=== PATIENT | female | born 1930 | race Caucasian/White ===

== ENCOUNTER 2017-06-05 10:47 | Emergency (ER) | payer OTHER ==
[~2017-06-05] VITALS: Ht 172.7 cm; Wt 88.5 kg
[2017-06-05] MEDS ORDERED: VESICARE5 M1 PO (10:59)
[2017-06-05] MEDS ORDERED: CITALOPRAM HBR20 MG PO (11:00)
[2017-06-05] MEDS ORDERED: PRAVASTATIN SOD40 M2 PO (11:01)
[2017-06-05] MEDS ORDERED: LEVOTHYROXINE75 MCG PO (11:01)
[2017-06-05] MEDS ORDERED: LOSARTAN POTASS50 M1 PO (11:02)
[2017-06-05] MEDS ORDERED: TAMIFLU75 M1 PO (11:02)
[2017-06-05] MEDS ORDERED: DONEPEZIL HCL23 MG PO (11:02)
[2017-06-05] MEDS ORDERED: CALCIUM 600 +1 EA11 PO (11:04)
--- NOTE | 2017-06-05 11:08 | ED GI/GU/ABDOMINAL COMPLAINT ---
History of Present Illness General Chief Complaint: Nausea, Vomiting, Diarrhea Stated Complaint: N/V Source: patient, old records, EMS, W10 Exam Limitations: poor historian Vital Signs & Intake/Output Vital Signs & Intake/Output Vital Signs Date Time Temp Pulse Resp B/P B/P Pulse O2 O2 Flow FiO2 Mean Ox Delivery Rate 06/05 1349 98.0 55 18 174/86 99 Room Air 06/05 1055 97.6 57 20 157/70 97 Room Air 06/05 1053 97 Allergies Coded Allergies: BEAU Inhibitors (COUGH 06/05/17) Reconcile Medications Calcium Carbonate/Vitamin D3 (Calcium 600 + Vit D 400 Tablet) 600 MG-400 TABLET 1 TAB PO DAILY SUPPLEMENT (Reported) Citalopram Hydrobromide (Citalopram HBr) 20 MG TABLET 1 TAB PO DAILY ANXIETY (Reported) Donepezil HCl 23 MG TABLET 1 TAB PO DAILY DEMENTIA (Reported) Levothyroxine Sodium 75 MCG TABLET 1 TAB PO DAILY AC THYROID (Reported) Losartan Potassium 50 MG TABLET 1 TAB PO BID HTN (Reported) Oseltamivir Phosphate (Tamiflu) 75 MG CAPSULE 1 CAP PO DAILY FLU PROPHO ( Reported) Pravastatin Sodium 40 MG TABLET 1 TAB PO QPM CHOLESTEROL (Reported) Solifenacin Succinate (Vesicare) 5 MG TABLET 1 TAB PO DAILY BLADDER (Reported ) Triage Note: PT BIBA FROM [facility] WITH N/V. STAFF FOUND PT ON HER KNEES THIS AM VOMITING. PT DID NOT HAVE DIARRHEA. PER [facility] STAFF PT VOMITED 3 TIMES AND AFTER THE THIRD TIME SHE BEGAN TO SHAKE. Triage Nurses Notes Reviewed? yes ? n Is pt currently ? No Onset: Gradual Duration: hour(s): (2) Timing: no prior history Quality/Severity: vomiting Radiation: no radiation Activities at Onset: none Prior Abdominal Problems: none Past Sexual History: Unobtainable at this time No Modifying Factors: none HPI: Patient is an 87-year-old female with history of hypertension, hypothyroid, dementia, hyperlipidemia and urinary urgency presenting to the emergency department via EMS from nursing facility with chief complaint of vomiting. According to the W 10 patient was witnessed kneeling on the floor vomiting at 9 AM this morning. Vital signs were stable at that time and no apparent injury from the fall was documented. Patient was placed back into bed and at 10:15 was observed sitting with tremors noted in the hands and she vomited again which lasted 15-20 seconds. They decided to transfer to the emergency department for evaluation after this episode. Patient does not recall this happening. Denies any abdominal pain. No chest pain palpitations or shortness of breath. Denies any fevers or chills. Unsure of any sick contacts. Unsure if she breakfast this morning. (Renuka Echeverria) Past History Travel History Traveled to [place] past 21 day No Medical History Any Pertinent Medical History? see below for history Neurological: dementia Cardiovascular: hypertension, hyperlipidemia Psychiatric: anxiety Endocrine: hypothyroidism Surgical History Surgical History: non-contributory Psychosocial History What is your primary language Vincentian Tobacco Use: Never used ETOH Use: denies use Illicit Drug Use: denies illicit drug use Family History Hx Contributory? No (Renuka Echeverria) Review of Systems Review of Systems Constitutional: Reports: no symptoms. Comments Review of systems: See HPI, All other systems negative. HPI and review of systems provided by patient and W 10. Constitutional, no fever or weight loss HEENT: No visual changes no sore throat no congestion Cardiovascular: No chest pain ,palpitation , orthopnea or ankle swelling Skin, no jaundice no rashes Respiratory: No dyspnea cough sputum or hemoptysis GI: No diarrhea : No dysuria No hematuria Muscle skeletal: no back pain, no neck pain, Neurologic: No numbness no confusion Psych: No stress anxiety or depression,. Heme/endocrine: No bruising no bleeding no polyuria or polydipsia Immunology: No splenectomy or history of AIDS (Renuka Echeverria) Physical Exam Physical Exam General Appearance: well developed/nourished, no apparent distress, alert, awake , comfortable Gastrointestinal: normal bowel sounds, soft, non-tender Comments: Well-developed well-nourished person in no acute distress HEENT: extraocular motion intact, no nystagmus. Pupils equally round and reactive to light and accommodation. Nose is atraumatic. External auditory canal and Tympanic membranes clear. Small amount of cerumen noted in the external canal bilaterally. Pharynx normal. No swelling or edema. Moist oral mucosa. Neck: Supple, no lymphadenopathy Back: Nontender, no CVA tenderness. Cardiovascular: Regular rate and rhythms no murmurs rubs or gallops Respiratory: Chest nontender. No respiratory distress.breath sounds clear to auscultation bilaterally Abdomen: Soft, nontender nondistended, no appreciable organomegaly. Normal bowel sounds. No ascites, no rebound or guarding. Extremity: No edema, no calf tenderness to palpation, normal and equal pulses. Neuro: Alert oriented x3, confusable situation as to why she is in the emergency department, motor sensory normal, cranial nerves II through XII grossly intact. Skin: No appreciable rash on exposed skin, skin is warm and dry. Psych: Mood and affect is normal, poor memory. Core Measures ACS in differential dx? No Sepsis Present: No Sepsis Focused Exam Completed? No (Whitney CARTER,Renuka) Progress Differential Diagnosis: gastritis, pancreatitis, SBO, UTI/pyelo, gastritis, gastroenteritis, influenza, dehydration, electrolyte abnormality Plan of Care: Orders Procedure Date/time Status Clear Liquid Diet 06/05 L Active Add-on Test (ER Only) 06/05 1225 Active Add-on Test (ER Only) 06/05 1153 Active TRIGLYCERIDES 06/05 1120 Complete ETHANOL 06/05 1120 Complete CREATINE PHOSPHOKINASE 06/05 1120 Complete RAPID VIRAL INFLUENZA A 06/05 1107 Complete URINALYSIS 06/05 1107 Complete TROPONIN LEVEL 06/05 1107 Complete LIPASE 06/05 1107 Complete COMPREHENSIVE METABOLIC PANEL 06/05 1107 Complete CBC WITHOUT DIFFERENTIAL 06/05 1107 Complete AMYLASE 06/05 1107 Complete EKG 06/05 1107 Active Laboratory Tests 06/05/17 1128: Urine Color YEL, Urine Clarity CLEAR, Urine pH 6.5, Ur Specific [place] 1.015, Urine Protein NEG, Urine Ketones NEG, Urine Nitrite NEG, Urine Bilirubin NEG, Urine Urobilinogen 0.2, Ur Leukocyte Esterase NEG, Ur Microscopic SEDIMENT EXAMINED, Urine RBC 3-5, Urine WBC RARE, Ur Epithelial Cells RARE, Hyaline Casts FEW H, Urine Hemoglobin SMALL H, Urine Glucose NEG 06/05/17 1120: Anion Gap 12, Estimated GFR 35 L, BUN/Creatinine Ratio 16.4, Glucose 113 H, Calcium 9.1, Total Bilirubin 0.4, AST 19, ALT 43, Alkaline Phosphatase 56, Creatine Kinase 30, Troponin I < 0.01, Total Protein 6.6, Albumin 3.8, Globulin 2.8, Albumin/Globulin Ratio 1.4, Triglycerides 145, Amylase 137 H, Lipase 480 H, CBC w Diff NO MAN DIFF REQ, RBC 3.92 L, MCV 84.6, MCH 28.9, RDW 13.8, MPV 6.3 L, Gran % 78.7 H, Lymphocytes % 14.0 L, Monocytes % 5.7, Eosinophils % 1.3, Basophils % 0.3, Absolute Granulocytes 6.0, Absolute Lymphocytes 1.1 L, Absolute Monocytes 0.4, Absolute Eosinophils 0.1, Absolute Basophils 0, PUBS MCHC 34.2, Serum Alcohol < 10.0 Microbiology 06/05 1118 NASOPHARYN: Influenza Virus A & B Rapid Smear - COMP Diagnostic Imaging: Viewed by Me: Radiology Read. Discussed w/RAD: Radiology Read. Radiology Impression: PATIENT: BEVERLY SINGH PRESENT AGE: 87 PATIENT ACCOUNT NO: [id number] : [birth year] LOCATION: [facility] ORDERING PHYSICIAN: Renuka CARTER SERVICE DATE: 06/05/17 EXAM TYPE: US - US-LIMITED ABDOMEN EXAMINATION: US ABDOMEN LIMITED CLINICAL INFORMATION: Vomiting. Elevated lipase. Rule out gallstones. COMPARISON: None TECHNIQUE: Real-time imaging of the right upper quadrant abdominal viscera. FINDINGS: PANCREAS: The pancreatic body is visualized with the remainder of the pancreas is essentially obscured by overlying bowel gas. Slight increased echogenicity of the pancreas is seen, suggesting fatty infiltration. LIVER: The liver contour is slightly nodular in the parenchyma slightly heterogeneous. Findings would raise the suspicion of subtle liver disease. No definite hepatic steatosis is seen. No focal lesion or intrahepatic biliary duct dilatation. GALLBLADDER: Normal. The gallbladder is physiologically distended without evidence of stones, sludge, polyps, wall thickening or pericholecystic fluid. COMMON BILE DUCT: Normal in caliber measuring 0.5 cm in diameter. RIGHT KIDNEY: Normal. No hydronephrosis. No renal calculi or focal parenchymal lesions. The kidney measures 8.4 cm in maximum dimension. FREE FLUID: None. IMPRESSION: 1. Fatty infiltration of the pancreas is suggested. Pancreatic body is otherwise unremarkable. Remainder of pancreas is obscured by overlying bowel gas. 2. There may be subtle underlying liver disease as evidenced by slightly nodular liver contour and heterogeneous parenchyma. Close clinical correlation is requested. 3. Otherwise unremarkable right upper quadrant ultrasound. DICTATED BY: Wilfredo MAYBERRY ,Sherie Santamaria DATE/TIME DICTATED:06/05/171342 AMBULATORY TECHNOLOGIST:ELIZ DATE/ TIME TRANSCRIBED:06/05/17 / 1342 CONFIDENTIAL, DO NOT COPY WITHOUT APPROPRIATE AUTHORIZATION. <Electronically signed in Other Vendor System> SIGNED BY: Sherie Villalobos MD 06/05/17 1350, CXRAY- NO ACUTE PROCESS Initial ED EKG: NSR (57 BPM) Comments: 06/05/2017 3:06:48 PM patient's family informed of all lab results and imaging study results. Patient has mild pancreatitis. Tolerating clear liquids without nausea or vomiting here in the emergency department. Still nontender on abdominal exam. No signs of gallstones triglycerides are within normal range. No elevated LFTs. Patient afebrile. No elevation of white blood cell count. Patient did recently start Tamiflu, possible side effect of Tamiflu could be pancreatitis. Patient will follow up with her primary care physician in regards to this patient's off the medication or not. Patient will be driven back to the assisted living facility by her daughter. Patient nontoxic. Also Milli Galeas MD, she agrees with plan. (Renuka Echeverria) Departure Departure Time of Disposition: 1448 Disposition: HOME OR SELF CARE Condition: Stable Clinical Impression Primary Impression: Pancreatitis Qualifiers: Chronicity: acute Pancreatitis type: unspecified pancreatitis type Acute pancreatitis complication: unspecified Qualified Code: K85.90 - Acute pancreatitis without necrosis or infection, unspecified Secondary Impressions: Dehydration Hypertension Qualifiers: Hypertension type: unspecified Qualified Code: I10 - Essential ( primary) hypertension Nausea and vomiting Qualifiers: Vomiting type: unspecified Vomiting Intractability: unspecified Qualified Code: R11.2 - Nausea with vomiting, unspecified Referrals: Lesli MAYBERRY,Altaf Briggs (PCP/Family) Additional Instructions: FOLLOW UP WITH YOUR PRIMARY CARE PHYSICIAN, CALL TO MAKE APPOINTMENT. Liquid diet for the nexT 24-40 hours. Take Tylenol as needed for pain. Return for worsening symptoms or concerns. Departure Forms: Customer Survey D/C INS-APPENDICITIS EXCLUSION General Discharge Information (Renuka Echeverria) PA/DIGITAL ARTIST Co-Sign Statement Statement: ED Attending supervision documentation- [X] I saw and evaluated the patient. I have also reviewed all the pertinent lab results and diagnostic results. I agree with the findings and the plan of care as documented in the PA's/DIGITAL ARTIST's documentation. [X] I have reviewed the ED Record and agree with the PA's/DIGITAL ARTIST's documentation. [] Additions or exceptions (if any) to the PAs/DIGITAL ARTIST's note and plan are summarized below: [] (Gudelia MAYBERRY,Milli)
[2017-06-05 11:33] LABS: ABSOLUTE BASOPHIL COUNT 0 /CUMM (0.0-0.2); ABSOLUTE EOSINOPHIL COUNT 0.1 /CUMM (0.0-0.7); ABSOLUTE LYMPH COUNT 1.1 /CUMM (1.2-3.4); ABSOLUTE MONOCYTE COUNT 0.4 /CUMM (0.10-0.60); BASOPHIL % 0.3 % (0.0-2.0); EOSINOPHIL % 1.3 % (0-5); GRANULOCYTE % 78.7 % (42.2-75.2); HEMATOCRIT 33.2 % (37-47); MEAN CORPUSCULAR HGB 28.9 PG (27.0-31.0); MEAN CORPUSCULAR HGB CONC 34.2 G/DL (33.0-37.0); MEAN CORPUSCULAR VOLUME 84.6 FL (81.0-99.0); MEAN PLATELET VOLUME 6.3 FL (7.4-10.4); PLATELET COUNT 332 /CUMM (130-400); RBC DISTRIBUTION WIDTH 13.8 % (11.5-14.5); RED BLOOD CELL CT 3.92 /CUMM (4.20-5.40); WHITE BLOOD CELL COUNT 7.6 /CUMM (4.8-10.8)
--- NOTE | 2017-06-05 11:45 | RADIOLOGY REPORT ---
EXAMINATION: XR PORTABLE CHEST CLINICAL INFORMATION: Diminished lung sounds after vomiting. Evaluate for aspiration. COMPARISON: None TECHNIQUE: Portable frontal view of the chest was obtained. FINDINGS: Lungs are symmetrically expanded and clear. No pulmonary consolidation or pleural effusion. Cardiac silhouette is normal in size and the hilar contours are normal. Incidentally noted is osseous connection between the left anterior fifth and sixth ribs. No acute skeletal findings. IMPRESSION: No evidence of aspiration pneumonia.
--- NOTE | 2017-06-05 13:50 | ULTRASOUND REPORT ---
EXAMINATION: US ABDOMEN LIMITED CLINICAL INFORMATION: Vomiting. Elevated lipase. Rule out gallstones. COMPARISON: None TECHNIQUE: Real-time imaging of the right upper quadrant abdominal viscera. FINDINGS: PANCREAS: The pancreatic body is visualized with the remainder of the pancreas is essentially obscured by overlying bowel gas. Slight increased echogenicity of the pancreas is seen, suggesting fatty infiltration. LIVER: The liver contour is slightly nodular in the parenchyma slightly heterogeneous. Findings would raise the suspicion of subtle liver disease. No definite hepatic steatosis is seen. No focal lesion or intrahepatic biliary duct dilatation. GALLBLADDER: Normal. The gallbladder is physiologically distended without evidence of stones, sludge, polyps, wall thickening or pericholecystic fluid. COMMON BILE DUCT: Normal in caliber measuring 0.5 cm in diameter. RIGHT KIDNEY: Normal. No hydronephrosis. No renal calculi or focal parenchymal lesions. The kidney measures 8.4 cm in maximum dimension. FREE FLUID: None. IMPRESSION: 1. Fatty infiltration of the pancreas is suggested. Pancreatic body is otherwise unremarkable. Remainder of pancreas is obscured by overlying bowel gas. 2. There may be subtle underlying liver disease as evidenced by slightly nodular liver contour and heterogeneous parenchyma. Close clinical correlation is requested. 3. Otherwise unremarkable right upper quadrant ultrasound.
[2017-06-05 15:18] VITALS: BP 170/69
== END 2017-06-05 15:19 ==
LOC: ERH 10:47
PROVIDERS: Physician Assistant
DX: K85.90 Acute pancreatitis without necrosis or infection, unspecified (principal); E86.0 Dehydration; I10 Essential (primary) hypertension
CPT/HCPCS: 71045; 81001; 87804; 87804-59; 93005; 93010; G0480